=== PATIENT | female | born 1990 | race Caucasian/White ===

== ENCOUNTER 2018-02-19 08:01 | Day surgery (SDC) | payer BC ==
[2018-02-19] MEDS ORDERED: GLYCOPYRROLATE INJ 0.2 MG/ML 2 ML VIAL As Ordered (08:07)
[2018-02-19] MEDS ORDERED: MIDAZOLAM INJ 2 MG/2 ML VIAL (J2250) As Ordered (08:08)
[2018-02-19] MEDS ORDERED: ROCURONIUM BROMIDE 50 MG/5 ML VIAL As Ordered (08:08)
[2018-02-19] MEDS ORDERED: fentaNYL 100 MCG/2 ML INJECTION (J3010) As Ordered ×2 (08:08→11:47)
[2018-02-19] MEDS ORDERED: KETOROLAC 60 MG/2 ML VIAL (J1885) As Ordered (08:08)
[2018-02-19] MEDS ORDERED: HYDROmorphone HCL 2 MG/ML 1ML VIAL (J1170) As Ordered (08:08)
[2018-02-19] MEDS ORDERED: LIDOCAINE 2% INJ 100 MG/5 ML SDV (FOR ANES.) As Ordered (08:08)
[2018-02-19] MEDS ORDERED: dexameTHASONE 4 MG/ML 1ML VIAL (J1100) As Ordered (08:08)
[2018-02-19] MEDS ORDERED: ONDANSETRON 4MG/2ML VIAL (J2405) As Ordered (08:08)
[2018-02-19] MEDS ORDERED: PROPOFOL 200 MG/20 ML VIAL As Ordered (08:08)
[2018-02-19] MEDS ORDERED: NEOSTIGMINE 10 MG/10 ML VIAL (J2710) As Ordered (08:08)
[2018-02-19 08:35] LABS: HEMATOCRIT 41.1 % (36.0-47.0); HEMOGLOBIN 13.7 g/dl (12.0-15.5); MEAN CORPUSCULAR HEMOGLOBIN 29.5 pg (27.0-33.0); MEAN CORPUSCULAR HGB CONC 33.3 g/dl (32.0-36.5); MEAN CORPUSCULAR VOLUME 88.4 fl (80.0-96.0); PLATELET COUNT, AUTOMATED 234 10^3/uL (150-450); RED BLOOD COUNT 4.65 10^6/uL (4.00-5.40); RED CELL DISTRIBUTION WIDTH 12.2 % (11.5-14.5); WHITE BLOOD COUNT 6.2 10^3/uL (4.0-10.0)
[2018-02-19 08:37] LABS: CONTROL LINE UCG INT CTR LINE PRESENT; URINE PREG TEST NEGATIVE (NEGATIVE)
[2018-02-19] MEDS: LR 1,000 ML IV ×3 (09:13→12:00)
[2018-02-19] MEDS: BUPIVACAINE HCL 0.25% 10 ML VIAL As Ordered (10:20)
[2018-02-19] MEDS: METHYLENE BLUE 0.5% (5MG/ML) 10 ML AMP (PROVAYBLUE)(Q9968 PER 1MG) As Ordered (10:50)
[2018-02-19] MEDS ORDERED: PERCOCET 5MG/325MG TAB As Ordered (11:47)
[2018-02-19] MEDS ORDERED: MEPERIDINE INJ 25 MG/ML VIAL (J2175) As Ordered (11:47)
[2018-02-19] MEDS: MEPERIDINE INJ 25 MG/ML VIAL (J2175) IV ×2 (11:48→11:53)
[2018-02-19] MEDS: fentaNYL 100 MCG/2 ML INJECTION (J3010) IV ×4 (11:50→12:29)
[2018-02-19] MEDS: PERCOCET 5MG/325MG TAB PO ×2 (11:57→12:27)
[2018-02-19] MEDS ORDERED: PERCOCET 5MG/325MG TAB PO ×2 (12:00)
[2018-02-19] MEDS ORDERED: ONDANSETRON 4MG/2ML VIAL (J2405) IV (12:00)
[2018-02-19] MEDS ORDERED: MORPHINE 4 MG/ML 1ML VIAL/SYRINGE (J2270) IV (12:00)
[2018-02-19] MEDS ORDERED: METOCLOPRAMIDE INJ 10MG/2ML VIAL (J2765) IV (12:00)
[2018-02-19] MEDS: ONDANSETRON 4MG/2ML VIAL (J2405) IV (13:06)
[2018-02-19] MEDS: KETOROLAC 30 MG/ML VIAL (J1885) IV (16:02)
[2018-02-19] MEDS ORDERED: DOCUSATE SODIUM 100 MG CAP PO (21:00)
== END 2018-02-19 18:50 | disposition home or self-care (01) ==
LOC: M SDC 08:01 → M PED 12:40 → M SDC 18:50
DX: N92.6 Irregular menstruation, unspecified (principal); R10.2 Pelvic and perineal pain; N83.8 Other noninflammatory disorders of ovary, fallopian tube and broad ligament; F41.9 Anxiety disorder, unspecified; F17.210 Nicotine dependence, cigarettes, uncomplicated; Z79.899 Other long term (current) drug therapy
CPT/HCPCS: 58571

== ENCOUNTER → 2019-02-17 | Outpatient (REF) | payer BC, MEDICAID ==
[~2019-02-17] MED LIST: MIRT15TA3 PO; OXYC1TAB23 PO
[2019-02-17 18:52] LABS: AMORPHOUS SEDIMENT LARGE (NEGATIVE); APPEARANCE, URINE TURBID (CLEAR); BACTERIA, URINE AUTO NEGATIVE (NEGATIVE); BILIRUBIN, URINE AUTO NEGATIVE (NEGATIVE); BLOOD, URINE BLOOD NEGATIVE (NEGATIVE); COLOR, URINE YELLOW (YELLOW); GLUCOSE, URINE (UA) AUTO NEGATIVE (NEGATIVE); KETONE, URINE AUTO NEGATIVE (NEGATIVE); LEUKOCYTE ESTERASE, URINE AUTO NEGATIVE (NEGATIVE); NITRITE, URINE AUTO NEGATIVE (NEGATIVE); PROTEIN, URINE AUTO NEGATIVE (NEGATIVE); RBC, URINE AUTO 0 /HPF (0-3); SPECIFIC GRAVITY URINE AUTO 1.027 (1.002-1.035); SQUAMOUS EPITHELIAL CELL UR AU 2 /HPF (0-6); UROBILINOGEN, URINE AUTO 0.2 mg/dL (0.0-2.0); WBC, URINE AUTO 2 /HPF (0-3)
== END ==
LOC: M LAB REF 16:46
PROVIDERS: ATTEND Family Medicine Addiction Medicine
DX: R10.9 Unspecified abdominal pain (principal)

== ENCOUNTER → 2019-10-07 | Outpatient (CLI) | payer OTHER ==
--- NOTE | 2019-10-07 18:36 | REP ---
Clinical: Left ovarian cyst. Technique: Transabdominal pelvic ultrasound followed by transvaginal examination for better evaluation of the endometrium and adnexa. Findings: Bladder is normal and measures 8.7 x 6.8 x 8.9 cm Evidence for prior hysterectomy. Right ovary is normal in appearance and vascularity without torsion and measures 2.3 x 1.8 x 2.0 cm. Left ovary measures 5.1 x 4.4 x 6.7 cm with normal vascularity and no evidence for torsion, but includes 4.4 x 3.3 x 4.5 cm homogeneously hypoechoic avascular lesion and 2.4 x 1.7 x 2.4 cm complex cyst. Impression: 1. Two lesions in the left ovary as described above may represent complex cysts, hemorrhagic cysts, as well as chocolate cyst/endometrioma. Correlation is recommended and follow-up examination in 4-6 weeks to evaluate for resolution may be warranted. Electronically Signed by Henry Aragon MD 10/07/2019 06:27 P
== END ==
LOC: M WHC 14:26
PROVIDERS: ATTEND Specialist
DX: N83.202 Unspecified ovarian cyst, left side (principal)

== ENCOUNTER → 2019-11-06 | Outpatient (CLI) | payer OTHER | LOC: M LABSMTC 10:49 | PROVIDERS: ATTEND Family Medicine | DX: Z11.59 Encounter for screening for other viral diseases (principal); Z20.828 Contact with and (suspected) exposure to other viral communicable diseases ==